=== PATIENT | male | born 1955 | race Native Hawaiian/Other Pacific Islander ===

== ENCOUNTER 2019-06-10 19:31 | Emergency (ER) | payer OTHER ==
[~2019-06-10] VITALS: Ht 185.4 cm; Wt 145.2 kg
[2019-06-10] MEDS ORDERED: LISI10TA11 PO (21:19)
[2019-06-11 00:58] LABS: PLATELET COUNT 452 K/uL (142-355)
[2019-06-11 01:30] LABS: POTASSIUM 3.7 mmol/L (3.6-5.2)
[2019-06-11 03:00] VITALS: BP 158/72; TEMP 97.3
== END 2019-06-11 03:00 | disposition home or self-care (01) ==
LOC: ED 19:31
PROVIDERS: Emergency Medicine
DX: R10.30 Lower abdominal pain, unspecified (principal); E65 Localized adiposity
CPT/HCPCS: 80053; 81000; 85027; 99283